=== PATIENT | female | born 1950 | race African-American/Black ===

== ENCOUNTER 2016-04-05 22:38 | Emergency (ER) | payer MEDICARE, MEDICAID ==
[~2016-04-05] VITALS: Ht 152.4 cm; Wt 69.1 kg
[~2016-04-05 22:38] MED LIST: BENZ100 PO
[2016-04-05 22:40] VITALS: BP 196/98; PULSE 110; RESP 18; TEMP 98.9; O2SAT 97
[2016-04-05 23:09] VITALS: BP 179/92; PULSE 94; RESP 30; O2SAT 95
[2016-04-05] MEDS ORDERED: CYCL5TAB PO (23:36)
[2016-04-05] MEDS ORDERED: ATEN25TA PO (23:36)
[2016-04-05] MEDS ORDERED: GLIP5TAB8 PO (23:36)
[2016-04-05] MEDS ORDERED: MELO7.5T4 PO (23:36)
[2016-04-05] MEDS ORDERED: TIZA2CAP3 PO (23:36)
[2016-04-05] MEDS ORDERED: ALBU0.63 NEB (23:36)
[2016-04-05 23:54] LABS: AUTOMATED NEUTROPHIL # 4.2 TH/MM3 (1.8-7.7); BASOPHIL % 0.6 % (0.0-2.0); EOSINOPHIL # 0.3 TH/MM3 (0-0.4); EOSINOPHIL % 4.6 % (0.0-4.0); HEMATOCRIT 35.8 % (35.0-46.0); HEMO FLAGS DIFF FINAL; LYMPH % 30.9 % (9.0-44.0); LYMPHOCYTE # 2.2 TH/MM3 (1.0-4.8); MEAN CELL VOLUME 79.8 FL (80.0-100.0); MEAN CORPUSCULAR HEMOGLOBIN 26.8 PG (27.0-34.0); MEAN CORPUSCULAR HGB CONC 33.5 % (32.0-36.0); MONO % 6.1 % (0.0-8.0); NEUT % 57.8 % (16.0-70.0); PLATELET COUNT 379 TH/MM3 (150-450); RED BLOOD COUNT 4.48 MIL/MM3 (4.00-5.30); RED CELL DISTRIBUTION WIDTH 14.7 % (11.6-17.2); WHITE BLOOD COUNT 7.3 TH/MM3 (4.0-11.0)
--- NOTE | 2016-04-06 00:03 | PD ---
HPI Chief Complaint: Respiratory Symptoms Time Seen by Provider: 23:11 Travel History International Travel<30 days: No Contact w/Intl Traveler<30days: No Traveled to known affect area: No History of Present Illness HPI 65yo F with PMH of DM, HTN presents to the ED with c/o cough, rhinorrhea, nasal congestion, intermittent chest pain since November 2015. States that chest pain is midsternal today and sharp. Pt has been having chest pain since November. Denies any fever, n/v, abdominal pain, focal weakness or numbness. PFSH Past Medical History Arthritis: Yes (OSTEOARTHRITIS) Asthma: Yes Cancer: No Cardiac Catheterization: Yes (1992) Cardiovascular Problems: No COPD: Yes Diabetes: Yes Patient Takes Glucophage: Yes Diminished Hearing: No GERD: Yes Hepatitis: No Hiatal Hernia: No Hypertension: Yes Kidney Stones: No Medical other: Yes (GERD; ARTHRITIS) Musculoskeletal: Yes (BULGING DISKS, ROTATOR CUFF TEAR) Neurologic: Yes (BULGING DISCS, SUPPOSED TO WEAR LUMBAR BRACE) Respiratory: Yes Thyroid Disease: Yes Menopausal: Yes Past Surgical History Body Medical Devices: CHRONIC BACK PAIN Cholecystectomy: Yes Gynecologic Surgery: Yes (HYSTERECTOMY) Hysterectomy: Yes Other Surgery: Yes Social History Alcohol Use: No Tobacco Use: No Substance Use: No Allergies-Medications (Allergen,Severity, Reaction): Coded Allergies: Atarax (Verified Allergy, Severe, HIVES, STOMACH PAIN, 12/24/15) Codeine (Verified Allergy, Severe, HIVES, TONGUE AND THROAT SWELLING, 12/23) Mushroom (Verified Allergy, Severe, FACIAL EDEMA, 12/24/15) Penicillin (Verified Allergy, Severe, ITCHING, HIVES, SWELLING - CAN TAKE AMOX AND AMPICIL, 12/24/15) Reported Meds & Prescriptions Reported Meds & Active Scripts Active Robitussin 12 Hour Cough Liq (Dextromethorphan Polistirex Liq) 30 Mg/5 Ml Bronwyn 10 Ml PO Q12H PRN 5 Days Zithromax Z-Aashish (Azithromycin) 250 Mg Dspk 250 Mg PO DIRECTED 500 MG (2 tabs) day 1, then 1 tab days 2-5. Ventolin Hfa 18 GM Inh (Albuterol Sulfate) 90 Mcg/Act Aer 2 Puff INH Q4H PRN Reported Glipizide 5 Mg Tab 5 Mg PO BIDAC Take 30 minutes before a meal Meloxicam 7.5 Mg Tab 7.5 Mg PO DAILY Albuterol Neb (Albuterol Sulfate) 0.63 Mg/3 Ml Neb 0.63 Mg NEB Q4HR NEB PRN Tizanidine (Tizanidine HCl) 2 Mg Cap 2 Mg PO TID Flexeril (Cyclobenzaprine HCl) 5 Mg Tab 5 Mg PO TID Atenolol 25 Mg Tab 25 Mg PO DAILY Review of Systems Except as stated in HPI: all other systems reviewed are Neg Physical Exam Narrative GENERAL: 65yo F not in distress. SKIN: Warm and dry. HEAD: Atraumatic. Normocephalic. EYES: Pupils equal and round. No scleral icterus. No injection or drainage. ENT: No nasal bleeding or discharge. Mucous membranes pink and moist. NECK: Trachea midline. No JVD. CARDIOVASCULAR: Regular rate and rhythm. No murmur appreciated. RESPIRATORY: No accessory muscle use. Clear to auscultation. Breath sounds equal bilaterally. GASTROINTESTINAL: Abdomen soft, non-tender, nondistended. No rebound tenderness or guarding. MUSCULOSKELETAL: No obvious deformities. No clubbing. No cyanosis. No edema. NEUROLOGICAL: Awake and alert. No obvious cranial nerve deficits. Motor grossly within normal limits. Normal speech. PSYCHIATRIC: Appropriate mood and affect; insight and judgment normal. Data Data Last Documented VS Vital Signs Date Time Temp Pulse Resp B/P Pulse Ox O2 Delivery O2 Flow Rate FiO2 04/06/16 02:00 95 22 158/74 96 04/05/16 22:40 98.9 Room Air Orders Electrocardiogram (04/05/16 23:25) Basic Metabolic Panel (Bmp) (04/05/16 23:25) Ckmb (Isoenzyme) Profile (04/05/16 23:25) Complete Blood Count With Diff (04/05/16 23:25) Troponin I (04/05/16 23:25) Chest, Single Ap (04/05/16 23:25) Sodium Chlor 0.9% 1000 Ml Inj (Ns 1000 M (04/06/16 01:15) Insulin Human Regular Inj (Novolin R Inj (04/06/16 01:15) Guaifen-Dm 200-20 Mg/10 Ml Liq (Robituss (04/06/16 01:15) Potassium Chloride (Kcl) (04/06/16 01:30) Labs Laboratory Tests Test 04/05/16 23:30 White Blood Count 7.3 TH/MM3 Red Blood Count 4.48 MIL/MM3 Hemoglobin 12.0 GM/DL Hematocrit 35.8 % Mean Corpuscular Volume 79.8 FL Mean Corpuscular Hemoglobin 26.8 PG Mean Corpuscular Hemoglobin 33.5 % Concent Red Cell Distribution Width 14.7 % Platelet Count 379 TH/MM3 Mean Platelet Volume 7.2 FL Neutrophils (%) (Auto) 57.8 % Lymphocytes (%) (Auto) 30.9 % Monocytes (%) (Auto) 6.1 % Eosinophils (%) (Auto) 4.6 % Basophils (%) (Auto) 0.6 % Neutrophils # (Auto) 4.2 TH/MM3 Lymphocytes # (Auto) 2.2 TH/MM3 Monocytes # (Auto) 0.4 TH/MM3 Eosinophils # (Auto) 0.3 TH/MM3 Basophils # (Auto) 0.0 TH/MM3 CBC Comment DIFF FINAL Differential Comment Sodium Level 142 MEQ/L Potassium Level 3.3 MEQ/L Chloride Level 105 MEQ/L Carbon Dioxide Level 28.9 MEQ/L Anion Gap 8 MEQ/L Blood Urea Nitrogen 14 MG/DL Creatinine 1.19 MG/DL Estimat Glomerular Filtration 55 ML/MIN Rate Random Glucose 335 MG/DL Calcium Level 9.2 MG/DL Total Creatine Kinase 99 U/L Troponin I LESS THAN 0.02 NG/ML MDM Medical Decision Making Medical Screen Exam Complete: Yes Emergency Medical Condition: Yes Interpretation(s) EKG: NSR 92bpm. LAD. No ST segment elevation or depression. Laboratory Tests Test 04/05/16 23:30 White Blood Count 7.3 TH/MM3 (4.0-11.0) Red Blood Count 4.48 MIL/MM3 (4.00-5.30) Hemoglobin 12.0 GM/DL (11.6-15.3) Hematocrit 35.8 % (35.0-46.0) Mean Corpuscular Volume 79.8 FL (80.0-100.0) Mean Corpuscular Hemoglobin 26.8 PG (27.0-34.0) Mean Corpuscular Hemoglobin 33.5 % Concent (32.0-36.0) Red Cell Distribution Width 14.7 % (11.6-17.2) Platelet Count 379 TH/MM3 (150-450) Mean Platelet Volume 7.2 FL (7.0-11.0) Neutrophils (%) (Auto) 57.8 % (16.0-70.0) Lymphocytes (%) (Auto) 30.9 % (9.0-44.0) Monocytes (%) (Auto) 6.1 % (0.0-8.0) Eosinophils (%) (Auto) 4.6 % (0.0-4.0) Basophils (%) (Auto) 0.6 % (0.0-2.0) Neutrophils # (Auto) 4.2 TH/MM3 (1.8-7.7) Lymphocytes # (Auto) 2.2 TH/MM3 (1.0-4.8) Monocytes # (Auto) 0.4 TH/MM3 (0-0.9) Eosinophils # (Auto) 0.3 TH/MM3 (0-0.4) Basophils # (Auto) 0.0 TH/MM3 (0-0.2) CBC Comment DIFF FINAL Differential Comment Sodium Level 142 MEQ/L (136-145) Potassium Level 3.3 MEQ/L (3.5-5.1) Chloride Level 105 MEQ/L (98-107) Carbon Dioxide Level 28.9 MEQ/L (21.0-32.0) Anion Gap 8 MEQ/L (5-15) Blood Urea Nitrogen 14 MG/DL (7-18) Creatinine 1.19 MG/DL (0.50-1.00) Estimat Glomerular Filtration 55 ML/MIN (>89) Rate Random Glucose 335 MG/DL (74-106) Calcium Level 9.2 MG/DL (8.5-10.1) Total Creatine Kinase 99 U/L (26-192) Troponin I LESS THAN 0.02 NG/ML (0.02-0.05) Last Impressions Chest X-Ray 04/05/16 2500 Signed Impressions: Service Date/Time: March 23:41 - CONCLUSION: No acute cardiopulmonary disease Henry Osborne MD Differential Diagnosis URI vs. bronchitis vs. Pneumonia vs. atypical chest pain vs. post nasal drip Narrative Course 65yo F with URI like symptoms since November. Pt with very atypical chest pain since November. Labs reviewed, no leukocytosis. K: 3.3, replaced orally. Creatinine mildly elevated at 1.19. Glucose is 335. No increased anion gap. CO2 normal. States she forgot to take her glipizide today. Pt refused insulin. States she will take it when she gets up. Pt states he Troponin negative. CXR showed no acute cardiopulmonary disease. Pt is denying any more chest pain. She is more concern with her cough. States it is worst lying down and at night. She ran out of her ventolin pump. Pt is requesting antibiotics. I explained to her that I feel this is likely viral but she insisted that she improved with zpak last time. States I will write her a prescription but to hold off and take only if symptomatic treatment does not work. Diagnosis Primary Impression: URI (upper respiratory infection) Qualified Code: J06.9 - Upper respiratory tract infection, unspecified type Patient Instructions: General Instructions Departure Forms: Tests/Procedures Additional Instructions: Please follow up with your PMD in 3-7 days. Return to the ED if your symptoms worsen. Med/Other Pt SpecificInfo: Prescription(s) given Scripts Dextromethorphan Polistirex Liq (Robitussin 12 Hour Cough Liq)30 Mg/5 Ml Sus10 Ml PO Q12H PRN (COUGH) 5 Days Ref 0 Prov:Martha Tinoco DO 04/06/16 Azithromycin (Zithromax Z-Aashish)250 Mg [id number] Mg PO DIRECTED #1 DSPK Ref 0 500 MG (2 tabs) day 1, then 1 tab days 2-5. Prov:Martha Tinoco DO 04/06/16 Albuterol 18 GM Inh (Ventolin Hfa 18 GM Inh)90 Mcg/Act Aer2 Puff INH Q4H PRN ( SHORTNESS OF BREATH) #1 INHALER Ref 0 Prov:Martha Tinoco DO 04/06/16 Disposition: 01 DISCHARGE HOME Condition: Stable TinocoDeanna tellezavni TENA Apr 06, 2016 00:03
[2016-04-06 00:15] LABS: ANION GAP 8 MEQ/L (5-15); BICARBONATE 28.9 MEQ/L (21.0-32.0); BLOOD UREA NITROGEN 14 MG/DL (7-18); CHLORIDE 105 MEQ/L (98-107); CREATINE KINASE 99 U/L (26-192); GLOMERULAR FILTRATION RATE 55 ML/MIN (>89); POTASSIUM 3.3 MEQ/L (3.5-5.1); SODIUM (NA) 142 MEQ/L (136-145)
--- NOTE | 2016-04-06 00:15 | RADRPT ---
EXAM DATE/TIME: 04/05/2016 23:41 [facility] COMPARISON: CHEST SINGLE AP, December 24, 2015, 21:55. INDICATIONS : Chest pain, shortness of breath, and cough. MEDICAL HISTORY : Chronic obstructive pulmonary disease. SURGICAL HISTORY : None. ENCOUNTER: Initial ACUITY: 2 days PAIN SCORE: 6/10 LOCATION: chest FINDINGS: A single view of the chest demonstrates the lungs to be symmetrically aerated without evidence of mas s, infiltrate or effusion. The cardiomediastinal contours are unremarkable. Osseous structures are intact. CONCLUSION: No acute cardiopulmonary disease Henry Osborne MD on April 06, 2016 at 0:13 Board Certified Radiologist. This report was verified electronically.
[2016-04-06] MEDS ORDERED: INSULIN HUMAN REGULAR 1,000 UNITS/10 ML VIAL SQ ONE (01:15)
[2016-04-06] MEDS ORDERED: guaiFENesin/DEXTROMETHORPHAN 200 MG/20 MG/10 ML CUP PO ONE (01:15)
[2016-04-06] MEDS ORDERED: SODIUM CHLOR 0.9% 1000 ML INJ 1,000 ML IV ONE (01:15)
[2016-04-06] MEDS ORDERED: POTASSIUM CHLORIDE 20 MEQ CONTROLLED RELEASE TAB PO ONE (01:30)
[2016-04-06] MEDS ORDERED: ZITHTAB PO (01:38)
[2016-04-06] MEDS ORDERED: VENTAER INH (01:38)
[2016-04-06] MEDS ORDERED: DEXT1SUS PO (01:38)
[2016-04-06 02:00] VITALS: BP 158/74
--- NOTE | 2016-04-06 17:07 | EKG ---
Date Performed: 04/06/2016 Time Performed: 00:06:01 PTAGE: 65 years EKG: Sinus rhythm MARKED LEFT AXIS DEVIATION S1-S2-S3 PATTERN, CONSISTENT WITH PULMONARY DISEASE, RVH, OR NORMAL VARIA NT INCOMPLETE RIGHT BUNDLE BRANCH BLOCK NONSPECIFIC T-WAVE ABNORMALITY Compared to prior tracing no s ignificant change ABNORMAL ECG PREVIOUS TRACING : 12/25/2015 00.15 DOCTOR: Ramon Crawley Interpretating Date/Time 04/06/2016 16:59:00
== END 2016-04-06 02:17 | disposition home or self-care (01) ==
LOC: NEPC 22:38
DX: J06.9 Acute upper respiratory infection, unspecified (principal); J44.9 Chronic obstructive pulmonary disease, unspecified; J45.909 Unspecified asthma, uncomplicated; I10 Essential (primary) hypertension
CPT/HCPCS: 71010; 80048; 82550; 84484; 85025; 93005; 96360; 99284; J7030

== ENCOUNTER 2016-04-15 00:53 | Emergency (ER) | payer MEDICARE, MEDICAID, OTHER ==
[~2016-04-15] VITALS: Ht 153.7 cm; Wt 68.0 kg
[~2016-04-15 00:53] MED LIST changes: +ALBU0.63 NEB; +ATEN25TA PO; -BENZ100 PO; +CYCL5TAB PO; +DEXT1SUS PO; +GLIP5TAB8 PO; +MELO7.5T4 PO; +TIZA2CAP3 PO; +VENTAER INH; +ZITHTAB PO
[2016-04-15 00:56] VITALS: BP 186/93; PULSE 78; RESP 18; TEMP 98.2; O2SAT 95
[2016-04-15 01:22] VITALS: BP 159/76; PULSE 74; RESP 12; O2SAT 98
[2016-04-15] MEDS ORDERED: CLON0.1T PO (02:35)
--- NOTE | 2016-04-15 02:35 | PD ---
HPI Chief Complaint: Hypertension Time Seen by Provider: 01:56 Travel History International Travel<30 days: No Contact w/Intl Traveler<30days: No Traveled to known affect area: No History of Present Illness HPI 65-year-old female complains of elevated blood pressure. Patient has history hypertension and on amlodipine and atenolol. Patient states that her blood pressure was intubated 200 range this evening. Patient denies any headache. Patient denies any chest pain or shortness of breath. Patient denies abdominal pain. Patient denies any focal weakness and numbness of extremity. PFSH Past Medical History Arthritis: Yes (OSTEOARTHRITIS) Asthma: Yes Cancer: No Cardiac Catheterization: Yes (1992) Cardiovascular Problems: Yes (HTN) COPD: Yes Diabetes: Yes Patient Takes Glucophage: No Diminished Hearing: No GERD: Yes Hepatitis: No Hiatal Hernia: No Hypertension: Yes Kidney Stones: No Musculoskeletal: Yes (BULGING DISKS, ROTATOR CUFF TEAR) Neurologic: Yes (BULGING DISCS, SUPPOSED TO WEAR LUMBAR BRACE) Respiratory: Yes (COPD) Thyroid Disease: Yes Tetanus Vaccination: < 5 Years Influenza Vaccination: No Menopausal: Yes Past Surgical History Surgical History: No Previous Surgery Body Medical Devices: CHRONIC BACK PAIN Cholecystectomy: Yes Gynecologic Surgery: Yes (HYSTERECTOMY) Hysterectomy: Yes (FULL) Other Surgery: Yes Social History Alcohol Use: No Tobacco Use: No Substance Use: No Allergies-Medications (Allergen,Severity, Reaction): Coded Allergies: Atarax (Verified Allergy, Severe, HIVES, STOMACH PAIN, 04/15/16) Codeine (Verified Allergy, Severe, HIVES, TONGUE AND THROAT SWELLING, 04/15) Mushroom (Verified Allergy, Severe, FACIAL EDEMA, 04/15/16) Penicillin (Verified Allergy, Severe, ITCHING, HIVES, SWELLING - CAN TAKE AMOX AND AMPICIL, 04/15/16) Reported Meds & Prescriptions Reported Meds & Active Scripts Active Robitussin 12 Hour Cough Liq (Dextromethorphan Polistirex Liq) 30 Mg/5 Ml Bronwyn 10 Ml PO Q12H PRN 5 Days Ventolin Hfa 18 GM Inh (Albuterol Sulfate) 90 Mcg/Act Aer 2 Puff INH Q4H PRN Reported Glipizide 5 Mg Tab 5 Mg PO BIDAC Take 30 minutes before a meal Meloxicam 7.5 Mg Tab 7.5 Mg PO DAILY Albuterol Neb (Albuterol Sulfate) 0.63 Mg/3 Ml Neb 0.63 Mg NEB Q4HR NEB PRN Tizanidine (Tizanidine HCl) 2 Mg Cap 2 Mg PO TID Flexeril (Cyclobenzaprine HCl) 5 Mg Tab 5 Mg PO TID Atenolol 25 Mg Tab 25 Mg PO DAILY Review of Systems General / Constitutional: No: Fever Eyes: No: Visual changes HENT: No: Headaches Cardiovascular: No: Chest Pain or Discomfort Respiratory: No: Shortness of Breath Gastrointestinal: No: Abdominal Pain Genitourinary: No: Dysuria Musculoskeletal: No: Pain Skin: No Rash Neurologic: No: Weakness Psychiatric: No: Depression Endocrine: No: Polydipsia Hematologic/Lymphatic: No: Easy Bruising Physical Exam Narrative GENERAL: Well-nourished, well-developed patient. SKIN: Warm and dry. HEAD: Normocephalic. EYES: No scleral icterus. No injection or drainage. NECK: Supple, trachea midline. No JVD or lymphadenopathy. CARDIOVASCULAR: Regular rate and rhythm without murmurs, gallops, or rubs. RESPIRATORY: Breath sounds equal bilaterally. No accessory muscle use. GASTROINTESTINAL: Abdomen soft, non-tender, nondistended. MUSCULOSKELETAL: No cyanosis, or edema. BACK: Nontender without obvious deformity. No CVA tenderness. Neurologic exam normal. Data Data Last Documented VS Vital Signs Date Time Temp Pulse Resp B/P Pulse Ox O2 Delivery O2 Flow Rate FiO2 04/15/16 01:22 74 12 159/76 98 04/15/16 00:56 98.2 Nasal Cannula MDM Medical Decision Making Medical Screen Exam Complete: Yes Emergency Medical Condition: Yes Differential Diagnosis Differential diagnosis including anxiety, uncontrolled hypertension, hypertensive emergency, hypertensive crisis. Narrative Course 65-year-old female with elevated blood pressure. History of hypertension. Blood pressure is normotensive now in the emergency room. Diagnosis Primary Impression: Labile hypertension Patient Instructions: General Instructions Additional Instructions: Continue with all medications. Clonidine as needed for blood pressure about 180 /100. Follow-up with personal physician. Return if worse. Med/Other Pt SpecificInfo: Prescription(s) given Scripts Clonidine 0.1 Mg Tab0.1 Mg PO BID #30 TAB Ref 0 Prov:Rayo Serrato MD 04/15/16 Disposition: 01 DISCHARGE HOME Condition: Stable Rayo Serrato MD Apr 15, 2016 02:35
[2016-04-15 02:43] VITALS: BP 136/67; PULSE 69; RESP 18; O2SAT 98
== END 2016-04-15 02:49 | disposition home or self-care (01) ==
LOC: NEPE 00:53
DX: I10 Essential (primary) hypertension (principal)
CPT/HCPCS: 99283

== ENCOUNTER 2017-07-21 10:14 | Emergency (ER) | payer MEDICARE, MEDICAID ==
[~2017-07-21] VITALS: Ht 154.9 cm; Wt 70.0 kg
[~2017-07-21 10:14] MED LIST changes: +CLON0.1T PO; +MELO7.5T27 PO; -MELO7.5T4 PO; -ZITHTAB PO
[2017-07-21 10:19] VITALS: BP 177/87; PULSE 89; RESP 16; TEMP 98.1; O2SAT 98
--- NOTE | 2017-07-21 10:47 | PD ---
HPI . Calf pain Chief Complaint: Pain: Acute or Chronic Time Seen by Provider: 10:32 Travel History International Travel<30 days: No Contact w/Intl Traveler<30days: No Traveled to known affect area: No History of Present Illness HPI Patient presents with the acute onset of right calf pain. She noticed it this morning while still in bed. It has gotten a little bit better. She is concerned about a blood clot. The pain is rated 9/10 with no modifying factors. She does not have any associated symptoms such as chest pain or shortness of breath. PFSH Past Medical History Arthritis: Yes (OSTEOARTHRITIS) Asthma: Yes Cancer: No Cardiac Catheterization: Yes (1992) Cardiovascular Problems: Yes (HTN) COPD: Yes Diabetes: Yes Diminished Hearing: No GERD: Yes Hepatitis: No Hiatal Hernia: No Hypertension: Yes Kidney Stones: No Musculoskeletal: Yes (BULGING DISKS, ROTATOR CUFF TEAR) Neurologic: Yes (BULGING DISCS, SUPPOSED TO WEAR LUMBAR BRACE) Respiratory: Yes Thyroid Disease: Yes ?: Not Menopausal: Yes Past Surgical History Body Medical Devices: CHRONIC BACK PAIN Cholecystectomy: Yes Gynecologic Surgery: Yes (HYSTERECTOMY) Hysterectomy: Yes (FULL) Other Surgery: Yes Social History Alcohol Use: No Tobacco Use: No Substance Use: No Allergies-Medications (Allergen,Severity, Reaction): Coded Allergies: codeine (Unverified Allergy, Severe, HIVES, TONGUE AND THROAT SWELLING, ) hydroxyzine (Unverified Allergy, Severe, HIVES, STOMACH PAIN, 10/02/16) mushroom (Unverified Allergy, Severe, FACIAL EDEMA, 10/02/16) penicillin G (Unverified Allergy, Severe, ITCHING, HIVES, SWELLING - CAN TAKE AMOX AND AMPICIL, 10/02/16) Reported Meds & Prescriptions Reported Meds & Active Scripts Active Clonidine (Clonidine HCl) 0.1 Mg Tab 0.1 Mg PO BID Robitussin 12 Hour Cough Liq (Dextromethorphan Polistirex Liq) 30 Mg/5 Ml Bronwyn 10 Ml PO Q12H PRN 5 Days Ventolin Hfa 18 GM Inh (Albuterol Sulfate) 90 Mcg/Act Aer 2 Puff INH Q4H PRN Reported Glipizide 5 Mg Tab 5 Mg PO BIDAC Take 30 minutes before a meal Meloxicam 7.5 Mg Tab 7.5 Mg PO DAILY Albuterol Neb (Albuterol Sulfate) 0.63 Mg/3 Ml Neb 0.63 Mg NEB Q4HR NEB PRN Tizanidine (Tizanidine HCl) 2 Mg Cap 2 Mg PO TID Flexeril (Cyclobenzaprine HCl) 5 Mg Tab 5 Mg PO TID Atenolol 25 Mg Tab 25 Mg PO DAILY Review of Systems Except as stated in HPI: all other systems reviewed are Neg Physical Exam Narrative GENERAL: Awake and alert and in no acute distress. SKIN: Warm and dry. Normal color and turgor. HEAD: Normocephalic/atraumatic. EYES: Pupils are equal. Extraocular movements are intact. NECK: Normal range of motion. Supple. CARDIOVASCULAR: Regular rate and rhythm. RESPIRATORY: Nonlabored respirations. Normal sats. MUSCULOSKELETAL: Atraumatic. Normal muscle tone. Her right lower extremity does look swollen compared to the left and she has tenderness to palpation of the calf. NEUROLOGICAL: A and O 3. Nonfocal. PSYCHIATRIC: Appropriate mood and affect. Data Data Last Documented VS Vital Signs Date Time Temp Pulse Resp B/P (MAP) Pulse Ox O2 Delivery O2 Flow Rate FiO2 07/21/17 10:19 98.1 89 16 177/87 (117) 98 Orders Orders Us Leg Venous Doppler (07/21/17 10:37) [facility] Medical Decision Making Medical Screen Exam Complete: Yes Emergency Medical Condition: Yes Differential Diagnosis Differential diagnosis of leg pain includes but is not limited to lumbar radiculopathy, arthritis, myalgias, DVT. Narrative Course Patient presents with acute right calf pain. The calf is swollen and tender. Ultrasound is pending. Last Impressions Lower Extremity Ultrasound 07/21/17 1037 Signed Impressions: CONCLUSION: 1. Normal exam. No evidence of DVT. The history, exam, diagnostic testing, and current condition do not suggest any significant pathology to warrant further testing, continued ED treatment, admission, or surgical evaluation at this point. No EMC was found. The patient 's condition is stable and appropriate for discharge. Diagnosis Primary Impression: Right calf pain Patient Instructions: General Instructions, Leg Pain (ED) Disposition: 01 DISCHARGE HOME Condition: Stable Leia Garza MD Jul 21, 2017 10:47
--- NOTE | 2017-07-21 12:31 | RADRPT ---
EXAM DATE: 07/21/2017 12:28 PM EDT AGE/SEX: 67 years / Female INDICATIONS: Right lower extremity pain. CLINICAL DATA: This is the patient's initial encounter. Patient reports that signs and symptoms have been present for 1 day and indicates a pain score of 5/10. MEDICAL/SURGICAL HISTORY: . Hypertension. Diabetes. . Hysterectomy. COMPARISON: [facility], US LEG LEFT VENOUS DOPPLER, 08/22/2010. . No external comparison. TECHNIQUE: Venous ultrasound of both lower extremities was performed from the inguinal ligament to t he proximal calf. Real-time, color Doppler and spectral tracing, compression and augmentation techni ques were used. FINDINGS: There is normal compressibility of the deep venous system from the inguinal region to the proximal ca lf. No echogenic clot is seen in the lumen of the common femoral, femoral, popliteal, and posterior tibial veins. There is a normal response of the venous system to proximal and distal augmentation an d respiration. CONCLUSION: 1. Normal exam. No evidence of DVT. Electronically signed by: Savanah Do MD 07/21/2017 12:30 PM EDT
== END 2017-07-21 13:11 | disposition home or self-care (01) ==
LOC: NEPD 10:14
DX: M79.604 Pain in right leg (principal); I10 Essential (primary) hypertension; J44.9 Chronic obstructive pulmonary disease, unspecified; E11.9 Type 2 diabetes mellitus without complications; K21.9 Gastro-esophageal reflux disease without esophagitis; E07.9 Disorder of thyroid, unspecified; M19.90 Unspecified osteoarthritis, unspecified site; Z79.51 Long term (current) use of inhaled steroids; Z79.899 Other long term (current) drug therapy
CPT/HCPCS: 93971; 99284